=== PATIENT | female | born 1985 | race Two or more races ===

== ENCOUNTER 2024-02-03 20:42 | Observation (INO) | payer BC ==
[2024-02-03 20:49] VITALS: BMI 27.4
[2024-02-03] MEDS ORDERED: MAG HYDROX/AL HYDROX/SIMETH 30 ML UNIT-DOSE CUP ONE (21:14)
[2024-02-03] MEDS ORDERED: ACETAMINOPHEN INJECTION 100 ML ONE (21:14)
[2024-02-03] MEDS ORDERED: FAMOTIDINE 20 MG/50 ML IVPB 20 MG/50 ML MG IVPB ONE (21:15)
[2024-02-03] MEDS ORDERED: ONDANSETRON 4 MG/2 ML VIAL ONE (21:15)
[2024-02-03] MEDS: MAG HYDROX/AL HYDROX/SIMETH 30 ML UNIT-DOSE CUP PO ONE (21:36)
[2024-02-03] MEDS: ONDANSETRON 4 MG/2 ML VIAL IVPUSH ONE (21:36)
[2024-02-03] MEDS: SODIUM CHLORIDE 0.9% 500 ML INFUS.BAG IV ONE (21:36)
[2024-02-03] MEDS: ACETAMINOPHEN 1000 MG/100 ML BAG IVPB ONE (21:36)
[2024-02-03 21:42] LABS: BASO % 0.3 % (0-2.0); EOS % 0.7 % (0-4.5); HEMATOCRIT 34.4 % (32.4-45.2); HEMOGLOBIN 11.1 GM/dL (10.7-15.3); LYMPH % 26.4 % (8-40); MCHC 32.4 g/dl (32.0-36.0); MEAN CELL VOLUME 89.5 fl (80-96); MEAN PLT VOLUME 8.5 fl (7.5-11.1); MONO % 7.6 % (3.8-10.2); PLATELET COUNT 291 10^3/uL (134-434); RBC 3.84 M/mm3 (3.60-5.2); RDW 14.3 % (11.6-15.6); WHITE BLOOD COUNT 7.4 K/mm3 (4.0-10.0)
[2024-02-03] MEDS: FAMOTIDINE 20 MG/50 ML IVPB 20 MG/50 ML MG IVPB ONE (21:43)
[2024-02-03 21:44] LABS: URINE APPEARANCE CLEAR; URINE BILIRUBIN NEGATIVE (NEGATIVE); URINE COLOR YELLOW; URINE GLUCOSE (UA) NEGATIVE (NEGATIVE); URINE KETONE NEGATIVE (NEGATIVE); URINE LEUK ESTERASE NEGATIVE (NEGATIVE); URINE NITRITE NEGATIVE (NEGATIVE); URINE PROTEIN NEGATIVE (NEGATIVE); URINE UROBILINOGEN 0.2 mg/dL (0.2-1.0)
[2024-02-03 21:47] LABS: HCG,QUALITATIVE URINE Negative
[2024-02-03 21:53] LABS: INR 0.99 (0.83-1.09); PROTHROMBIN TIME (PATIENT) 11.4 SEC (9.7-13.0)
[2024-02-03 21:56] LABS: ACTIVATED PTT 30.6 SECONDS (25.2-36.5)
[2024-02-03 22:01] LABS: POTASSIUM 3.9 mmol/L (3.5-5.1)
[2024-02-03 22:04] LABS: CALCIUM 10.4 mg/dL (8.5-10.1)
[2024-02-03 22:05] LABS: ALBUMIN 4.3 g/dl (3.4-5.0); BLOOD UREA NITROGEN 12.8 mg/dL (7-18)
[2024-02-03 22:07] LABS: CREATININE 0.6 mg/dL (0.55-1.3)
[2024-02-03 22:09] LABS: BILIRUBIN,TOTAL 0.4 mg/dL (0.2-1); TOT PROT 7.4 g/dl (6.4-8.2)
[2024-02-04] MEDS ORDERED: morphine SULFATE 4 MG/ML VIAL ONE (00:13)
[2024-02-04] MEDS: morphine CARPU-JECT 4 MG/1 ML DISP.SYRIN IVPUSH ONE (00:21)
[2024-02-04] MEDS ORDERED: DICYCLOMINE HCL 10 MG CAPSULE ONE (01:03)
[2024-02-04] MEDS: DICYCLOMINE HCL 10 MG CAPSULE PO ONE (01:09)
[2024-02-04] MEDS: SODIUM CHLORIDE 1,000 ML IV SCH (03:39)
[2024-02-04] MEDS ORDERED: MORPHINE SULFATE 2 MG/ML SYRINGE ONE (05:09)
[2024-02-04] MEDS: MORPHINE SULFATE 2 MG/ML SYRINGE IVPUSH PRN (05:15)
[2024-02-04 05:47] LABS: BASO % 0.4 % (0-2.0); EOS % 1.1 % (0-4.5); HEMATOCRIT 32.6 % (32.4-45.2); HEMOGLOBIN 10.5 GM/dL (10.7-15.3); MCH 29.5 pg (25.7-33.7); MCHC 32.3 g/dl (32.0-36.0); MEAN CELL VOLUME 91.4 fl (80-96); MEAN PLT VOLUME 8.5 fl (7.5-11.1); MONO % 8.1 % (3.8-10.2); NEUT % 61.4 % (42.8-82.8); PLATELET COUNT 263 10^3/uL (134-434); RBC 3.57 M/mm3 (3.60-5.2); RDW 14.2 % (11.6-15.6); WHITE BLOOD COUNT 7.9 K/mm3 (4.0-10.0)
[2024-02-04 06:07] LABS: POTASSIUM 3.9 mmol/L (3.5-5.1)
[2024-02-04 06:08] LABS: CALCIUM 9.1 mg/dL (8.5-10.1)
[2024-02-04 06:12] LABS: CREATININE 0.6 mg/dL (0.55-1.3)
[2024-02-04] MEDS: ACETAMINOPHEN 1000 MG/100 ML BAG IVPB PRN (07:37)
[2024-02-04] MEDS: PANTOPRAZOLE SODIUM 40 MG VIAL IVPUSH SCH (10:01)
[2024-02-04] MEDS: INSULIN ASPART SLIDING SCALE (NOVOLOG) 1 VIAL SQ SCH (16:47)
[2024-02-04] MEDS: ONDANSETRON 4 MG/2 ML VIAL IVPUSH PRN (22:26)
[2024-02-05] MEDS: ALBUTEROL SO4 HFA INHALER IH PRN (06:06)
[2024-02-05 08:17] LABS: BASO % 0.2 % (0-2.0); EOS % 1.1 % (0-4.5); HEMATOCRIT 31.6 % (32.4-45.2); HEMOGLOBIN 10.3 GM/dL (10.7-15.3); LYMPH % 24.2 % (8-40); MCH 29.6 pg (25.7-33.7); MCHC 32.7 g/dl (32.0-36.0); MEAN CELL VOLUME 90.7 fl (80-96); MEAN PLT VOLUME 8.7 fl (7.5-11.1); MONO % 7.9 % (3.8-10.2); NEUT % 66.6 % (42.8-82.8); PLATELET COUNT 254 10^3/uL (134-434); RBC 3.49 M/mm3 (3.60-5.2); WHITE BLOOD COUNT 7.8 K/mm3 (4.0-10.0)
[2024-02-05 08:33] LABS: POTASSIUM 3.7 mmol/L (3.5-5.1)
[2024-02-05 08:35] LABS: CALCIUM 9.5 mg/dL (8.5-10.1)
[2024-02-05 08:36] LABS: BLOOD UREA NITROGEN 8.9 mg/dL (7-18)
[2024-02-05 08:37] LABS: ALBUMIN 3.4 g/dl (3.4-5.0)
[2024-02-05 08:39] LABS: CREATININE 0.6 mg/dL (0.55-1.3)
[2024-02-05 08:40] LABS: BILIRUBIN,TOTAL 0.2 mg/dL (0.2-1)
[2024-02-05 08:41] LABS: TOT PROT 6.2 g/dl (6.4-8.2)
[2024-02-05] MEDS: PANTOPRAZOLE 40 MG TABLET PO SCH (09:36)
[2024-02-05] MEDS ORDERED: KETOROLAC TROMETHAMINE 30 MG/1 ML VIAL IVPUSH PRN (13:03)
[2024-02-05 17:44] VITALS: RESP 18
[2024-02-05] MEDS: KETOROLAC TROMETHAMINE 30 MG/1 ML VIAL IVPUSH PRN (21:57)
[2024-02-06] MEDS: METHOCARBAMOL 500 MG TABLET PO ONE (02:33)
[2024-02-06 08:33] LABS: BASO % 0.3 % (0-2.0); EOS % 1.2 % (0-4.5); HEMATOCRIT 32.8 % (32.4-45.2); LYMPH % 27.3 % (8-40); MCH 30.1 pg (25.7-33.7); MCHC 33.5 g/dl (32.0-36.0); MEAN CELL VOLUME 89.8 fl (80-96); MEAN PLT VOLUME 8.5 fl (7.5-11.1); MONO % 7.1 % (3.8-10.2); NEUT % 64.1 % (42.8-82.8); PLATELET COUNT 261 10^3/uL (134-434); RBC 3.65 M/mm3 (3.60-5.2); RDW 14.1 % (11.6-15.6); WHITE BLOOD COUNT 7.1 K/mm3 (4.0-10.0)
[2024-02-06 08:56] LABS: POTASSIUM 3.8 mmol/L (3.5-5.1)
[2024-02-06 09:08] LABS: CALCIUM 9.2 mg/dL (8.5-10.1)
[2024-02-06 09:09] LABS: ALBUMIN 3.5 g/dl (3.4-5.0); BLOOD UREA NITROGEN 6.2 mg/dL (7-18)
[2024-02-06 09:12] LABS: CREATININE 0.5 mg/dL (0.55-1.3)
[2024-02-06 09:14] LABS: BILIRUBIN,TOTAL 0.2 mg/dL (0.2-1); TOT PROT 6.5 g/dl (6.4-8.2)
[2024-02-06] MEDS: ACETAMINOPHEN 1000 MG/100 ML BAG IVPB ONE (20:45)
[2024-02-06] MEDS: ACETAMINOPHEN 1000 MG/100 ML BAG IVPB SCH (23:43)
[2024-02-07] MEDS: DICYCLOMINE HCL 10 MG CAPSULE PO PRN (14:25)
[2024-02-07] MEDS: SUCRALFATE 1 GM/10 ML UNIT DOSE CUPS PO SCH (14:25)
[2024-02-07 17:27] VITALS: BP 128/76; PULSE 81; TEMP 98.4
== END 2024-02-07 18:55 | disposition home or self-care (01) ==
LOC: JER 20:42 → JERBED 02-04 02:18 → J7W 02-04 06:34
PROVIDERS: ADMIT Internal Medicine; ATTEND Internal Medicine
PROC: 3E033NZ Introduction of Analgesics, Hypnotics, Sedatives into Peripheral Vein, Percutaneous Approach (ICD-10-PCS; principal; 2024-02-04)
PROC: 3E033GC Introduction of Other Therapeutic Substance into Peripheral Vein, Percutaneous Approach (ICD-10-PCS; 2024-02-04)
PROC: 3E013VG Introduction of Insulin into Subcutaneous Tissue, Percutaneous Approach (ICD-10-PCS; 2024-02-04)
PROC: 3E0333Z Introduction of Anti-inflammatory into Peripheral Vein, Percutaneous Approach (ICD-10-PCS; 2024-02-04)
PROC: 3E0337Z Introduction of Electrolytic and Water Balance Substance into Peripheral Vein, Percutaneous Approach (ICD-10-PCS; 2024-02-04)
DX: N83.202 Unspecified ovarian cyst, left side (principal); R19.00 Intra-abdominal and pelvic swelling, mass and lump, unspecified site; N94.10 Unspecified dyspareunia; K83.8 Other specified diseases of biliary tract; E11.9 Type 2 diabetes mellitus without complications; K29.70 Gastritis, unspecified, without bleeding; N92.6 Irregular menstruation, unspecified; N92.0 Excessive and frequent menstruation with regular cycle
CPT/HCPCS: 36415; 74177-TC; 74182-TC; 76705-TC; 76830-TC; 80048; 80053; 81003; 82962; 83036; 83690; 84703; 85025; 85610; 85730; 86304; 86850; 86900; 86901; 87077; 87086; 96365; 96372; 96375; 96376; 99285-25; G0378; J0131; Q9967

== ENCOUNTER 2024-05-13 12:30 | Emergency (ER) | payer BC ==
[2024-05-13 12:42] VITALS: BP 139/90; PULSE 91; RESP 20; TEMP 97.6; BMI 27.4
[2024-05-13] MEDS ORDERED: FAMOTIDINE 20 MG/50 ML IVPB 20 MG/50 ML MG IVPB ONE (13:31)
[2024-05-13] MEDS: SODIUM CHLORIDE 1,000 ML IV STA (13:49)
[2024-05-13] MEDS: FAMOTIDINE 20 MG/50 ML IVPB 20 MG/50 ML MG IVPB ONE (13:50)
[2024-05-13 13:58] LABS: BASO % 0.4 % (0-2.0); EOS % 1.6 % (0-4.5); HEMATOCRIT 39.4 % (32.4-45.2); HEMOGLOBIN 12.7 GM/dL (10.7-15.3); LYMPH % 24.3 % (8-40); MCH 29.6 pg (25.7-33.7); MCHC 32.4 g/dl (32.0-36.0); MEAN CELL VOLUME 91.3 fl (80-96); MEAN PLT VOLUME 8.9 fl (7.5-11.1); MONO % 6.4 % (3.8-10.2); NEUT % 67.3 % (42.8-82.8); PLATELET COUNT 287 10^3/uL (134-434); RBC 4.31 M/mm3 (3.60-5.2); RDW 13.8 % (11.6-15.6); WHITE BLOOD COUNT 6.9 K/mm3 (4.0-10.0)
[2024-05-13 14:15] LABS: POTASSIUM 3.7 mmol/L (3.5-5.1)
[2024-05-13 14:16] LABS: EPI CELLS 5 /uL (0-25.1); HYALINE CASTS 0 /uL (0-3.1); URINE APPEARANCE CLEAR; URINE BACTERIA 70 /uL (0-1359); URINE BILIRUBIN NEGATIVE (NEGATIVE); URINE COLOR YELLOW; URINE GLUCOSE (UA) 2+ (NEGATIVE); URINE KETONE NEGATIVE (NEGATIVE); URINE LEUK ESTERASE NEGATIVE (NEGATIVE); URINE NITRITE NEGATIVE (NEGATIVE); URINE PROTEIN NEGATIVE (NEGATIVE); URINE RBC 236 /uL (0-23.9); URINE UROBILINOGEN 0.2 mg/dL (0.2-1.0); URINE WBC 4 /uL (0-25.8)
[2024-05-13 14:18] LABS: CALCIUM 9.7 mg/dL (8.5-10.1)
[2024-05-13 14:19] LABS: ALBUMIN 4.5 g/dl (3.4-5.0); BLOOD UREA NITROGEN 8.6 mg/dL (7-18)
[2024-05-13 14:21] LABS: CREATININE 0.9 mg/dL (0.55-1.3)
[2024-05-13 14:23] LABS: BILIRUBIN,TOTAL 0.5 mg/dL (0.2-1); TOT PROT 7.7 g/dl (6.4-8.2)
[2024-05-13] MEDS ORDERED: KETOROLAC TROMETHAMINE 15 MG/ML VIAL ONE (15:07)
[2024-05-13 15:13] LABS: HIV INTERPRETATION NEGATIVE (NEGATIVE)
[2024-05-13] MEDS: KETOROLAC TROMETHAMINE 15 MG/ML VIAL IVPUSH ONE (15:14)
== END 2024-05-13 15:15 | disposition home or self-care (01) ==
LOC: JER 12:30
PROC: 3E033GC Introduction of Other Therapeutic Substance into Peripheral Vein, Percutaneous Approach (ICD-10-PCS; principal; 2024-05-13)
PROC: 3E0333Z Introduction of Anti-inflammatory into Peripheral Vein, Percutaneous Approach (ICD-10-PCS; 2024-05-13)
DX: E11.65 Type 2 diabetes mellitus with hyperglycemia (principal); R11.0 Nausea; R42 Dizziness and giddiness; R07.9 Chest pain, unspecified
CPT/HCPCS: 36415; 80053; 81003; 82010; 82550; 82962; 84484; 85025; 86803; 87086; 87389; 99284-25

== ENCOUNTER 2024-06-05 21:14 | Emergency (ER) | payer BC ==
[2024-06-05 21:26] VITALS: BP 145/101; PULSE 98; RESP 16; TEMP 98.4; BMI 28.8
[2024-06-05 22:29] LABS: VENOUS BASE EXCESS -1.7 mmol/L (-2-2); VENOUS O2 SATURATION 47.4 % (70-80); VENOUS PCO2 45.8 mmHg (38-52); VENOUS PH 7.343 (7.310-7.410)
[2024-06-05 22:34] LABS: BASO % 0.7 % (0-2.0); EOS % 2.2 % (0-4.5); HEMATOCRIT 39.9 % (32.4-45.2); LYMPH % 30.2 % (8-40); MCH 29.6 pg (25.7-33.7); MCHC 32.5 g/dl (32.0-36.0); MEAN CELL VOLUME 90.8 fl (80-96); MEAN PLT VOLUME 8.7 fl (7.5-11.1); MONO % 6.6 % (3.8-10.2); NEUT % 60.3 % (42.8-82.8); PLATELET COUNT 285 10^3/uL (134-434); RDW 14.2 % (11.6-15.6); WHITE BLOOD COUNT 8.5 K/mm3 (4.0-10.0)
[2024-06-05] MEDS: SODIUM CHLORIDE 0.9% 500 ML INFUS.BAG IV ONE (22:51)
[2024-06-05 22:58] LABS: POTASSIUM 4.2 mmol/L (3.5-5.1)
[2024-06-05 23:00] LABS: CALCIUM 9.9 mg/dL (8.5-10.1)
[2024-06-05 23:01] LABS: ALBUMIN 4.2 g/dl (3.4-5.0); BLOOD UREA NITROGEN 9.7 mg/dL (7-18)
[2024-06-05 23:04] LABS: CREATININE 0.7 mg/dL (0.55-1.3)
[2024-06-05 23:06] LABS: BILIRUBIN,TOTAL 0.3 mg/dL (0.2-1); TOT PROT 7.6 g/dl (6.4-8.2)
[2024-06-05 23:45] LABS: HIV INTERPRETATION NEGATIVE (NEGATIVE)
== END 2024-06-05 23:35 | disposition home or self-care (01) ==
LOC: JER 21:14
DX: E11.65 Type 2 diabetes mellitus with hyperglycemia (principal); Z79.84 Long term (current) use of oral hypoglycemic drugs
CPT/HCPCS: 36415; 80053; 82803; 82962; 85025; 86803; 87389; 99283-25